=== PATIENT | male | born 1980 | race Two or more races ===

== ENCOUNTER 2017-06-17 12:43 | Emergency (ER) | payer SELFPAY ==
[2017-06-17 12:48] VITALS: BP 137/89; BMI 29.2
--- NOTE | 2017-06-17 13:22 | DR.HEADACH ---
HPI - Time Seen Time seen: 13:20 - Primary Care Physician Primary Care Physician: JOANA - HPI Comment HPI Comment: GETTING WORSE. NO FEVER. PATIENT HAVE STUFFY NOSE AND CHEST CONGESTIOIN. - Complaint/Symptoms Chief Complaint Doctors Comments: COUGH, CONGESTION, HEADACHE, DIZZINESS AND SINUS DRAINAGE TIMES FEW DAYS. Chief Complaint:: DIZZINESS, HEADACHE, FATIQUE Pertinent History: Dizziness/Weakness, Headache - Reviewed Nurses Notes Reviewed: Yes - Source History Provided: Patient - Mode of Arrival Mode of Arrival: Ambulatory - Timing Onset of Chief Complaint: 06/16/17 - Duration Since Onset: Constant Duration: Days - Location Headache Location: Generalized - Quality Quality: Throbbing - Severity Headache Severity: Moderate - Context Headache Onset Circumstances: Spontaneous History of: None Prior Work Up: None - Modifying Factors Improves With: Nothing Worsens: Nothing - Associated Signs and Symptoms Associated Symptoms: Weakness, Nasal Congestion Aura: denies: Visual, Sensory, Motor, Mood PMH - PMH Past Medical History: No Past Surgical History: No - Family History History of Family Medical Conditions: No - Social History Does patient currently use any type of tobacco product: Yes Have you used tobacco products in the last 12 months: Yes Type of Tobacco Use: Cigarettes How many years tobacco product used: 20 Does any household member use tobacco: No Alcohol Use: None Do you use any recreational Drugs:: No Lives With: Family Lives Where: Home - infectious screening In the last 2 months have you had wt loss of >10#?: NO Have you had fever, night sweats or hemotysis?: No Have you traveled outside the country in the last 6 months?: No Isolation: Standard ROS - Review of Systems Constitutional: Weakness, Fatigue. negative: Chills, Fever Eyes: No Symptoms Reported. negative: Eye Pain, Discharge ENTM: Nose Discharge, Nose Congestion. negative: Ear Pain, Throat Pain Respiratoy: Productive Cough, Short of Breath. negative: Non-Productive Cough, Wheezing, Hemoptysis Cardiovascular: No Symptoms Reported Gastrointestinal/Abdominal: No Symptoms Reported Genitourinary: No Symptoms Reported Neurological: Headache, Weakness, Dizziness Musculoskeletal: Muscle Pain Integumentary: No Symptoms Reported Hematologic/Lymphatic: No Symptoms Reported Endocrine: No Symptoms Reported All Other Systems: Reviewed and Negative PE - Vital Signs Vitals: Temperature 97.9 F Pulse Rate 67 Respiratory Rate 20 Blood Pressure 137/89 O2 Sat by Pulse Oximetry 98 - General Limitations: No Limitations General Appearance: Alert - Head Head Exam: Normal Inspection - Eyes Eye exam: Normal Appearance, PERRL, EOMI. negative: Scleral Icterus, Conjunctival Injection Eyelids: Normal Inspection: Bilateral Pupils: Regular, Round: Bilateral, Reactive: Bilateral - ENT ENT Exam: Normal External Ear Exam. negative: Normal Oropharynx (THROAT SLIGHTLY INFLAME.TONSILS NOT ENLARGE.), TM's Normal Bilaterally (TM BULGING.) TM/Canal Exam: Bilateral Bulging Nose Exam: Normal Nose Exam Mouth Exam: Normal Inspection Teeth Exam: Normal Inspection Throat Exam: Tonsillar Erythema. negative: Tonsillomegaly - Neck Neck Exam: Normal Inspection, Trachea Midline - Chest Chest Inspection: Symmetric Chest Wall Rise - Respiratory Respiratory Exam: Normal Lung Sounds Bilat Respiratory Exam: Bilateral Rhonchi, Lower Rhonchi - Cardiovascular Cardiovascular Exam: Regular Rate, Normal Rhythm, Normal Heart Sounds - Abdominal Exam Abdominal Exam: Normal Bowel Sounds, Soft. negative: Tenderness - Extremities Extremities Exam: Normal Inspection - Back Back Exam: Normal Inspection - Neurologic Neurological Exam: Alert, Oriented X3 - Psychiatric Psychiatric Exam: Normal Affect, Normal Mood - Skin Skin Exam: Normal Color MDM - Differential Diagnosis Differential Diagnosis: Considerations may include:: Sinusitis (SINUS HEADACHE) , Other (BRONCHITIS) Course - Treatment Treatment: SEE ORDERS. - Education/Counseling Education/Counseling: Patient, Education Educated On: Diagnosis, Needs for Follow Up - Diagnosis Discharge Problem: Sinus headache, Bronchitis Sinusitis Qualifiers: Sinusitis location: unspecified location Chronicity: acute Recurrence: not specified as recurrent Qualified Code(s): J01.90 - Acute sinusitis, unspecified - Discharge Plan Disposition: 01 HOME, SELF-CARE Condition: Stable Prescriptions: Amoxicillin [Amoxil 875 mg] 875 mg PO Q12H #20 tab Benzonatate [TESSALON PERLES *] 200 mg PO TID PRN #30 cap PRN Reason: Cough Cetirizine HCl [Zyrtec Tab 10 mg] 10 mg PO DAILY #20 tab - Follow ups/Referrals Follow ups/Referrals: [facility],None [Primary Care Provider] - 3 days - Instructions Instructions: Sinusitis, Adult, [id number], Acute Bronchitis, [id number], Sinus Headache, [id number] Additional Instructions: RETURN TO ED IF WORSE.
== END 2017-06-17 16:18 | disposition home or self-care (01) ==
LOC: ER 13:01
DX: J01.80 Other acute sinusitis (principal); J40 Bronchitis, not specified as acute or chronic; R51 Headache
CPT/HCPCS: 99281; 99282